=== PATIENT | male | born 1955 | race Caucasian/White ===

== ENCOUNTER 2021-11-02 10:48 | Outpatient (CLI) | payer MEDICARE, OTHER ==
[2021-11-02 21:34] VITALS: BP 128/74
--- NOTE | 2021-11-02 21:34 | SLEEP CARE CONSULTATION ---
Information from patient questionnaire entered by Clifton Cabrera MA. I have reviewed and concur with the information entered by Clifton Cabrera MA. This document represents the service I personally performed and the decisions made by me, Rajani Escobar MD, [facility]. History of Present Illness Service Date and Time: 11/02/2021 1048 Reason for Visit: New patient (ONSET 08/2019, NO PRIORS,) Chief Complaint: reports: Other (FALLING, JUMPING OUT OF BED, ACTING OUT TO DREAMS.) Date of Onset: LONG TIME, MORE FREQUENT Usual bedtime: 1000 PM Time it takes to fall asleep: NOT LONG Snores at night: Yes Observed to quit breathing while asleep: No Sleeps alone due to snoring: No Number of times waking at night: 1-4 Reasons for waking at night: reports: Snoring, Other (NIGHT TYLER) Toss, Turn, or Twitch while sleeping: Yes Recalls having dreams: Yes Usually gets out of bed at: 0730 Feels refreshed in the morning: No Morning headache: No Sleepy or fatigued during the day: No Ever fallen asleep while driving: No Takes day naps: Yes Dreams during day naps: No Prior sleep studies: No Additional HPI information: I had the pleasure of seeing Mr. Weber today regarding the possibility of him having a sleep disorder. As you know, he is a 66-year-old gentleman who complains of falling out of bed because he acted out his dreams. He says that he has acted out dreams all his life, but it is more frequent now. So far, he has sustained cuts on his head twice. He has punched his but no injury. The movements are usually in the second half of the night. His dreams are vivid and more violent recently. He tried taking melatonin briefly. No other meds. The patient tells me that he normally goes to bed around 10 pm, and it takes him approximately 5 - 10 minutes to fall asleep. He has been told that he snores loudly and irregularly at night. He has never been observed to stop breathing in his sleep. His can still sleep in the same bed. He can recall waking up on the average of 1 - 4 times during the night. Most of the time he wakes up because of having to use the bathroom. He has awakened occasionally because of his own snoring, but not choking, or having to gasp for air. There is a lot of tossing and turning in his sleep. In the morning he usually gets up out of the bed around 7:30 a.m. not feeling refreshed nor rested. He usually does not have a morning headache. During the day he does not feel sleepy or fatigued. His score on Reynolds Sleepiness Scale is 8 out of 24. He never has fallen asleep while driving nor has had any accident due to sleepiness. He usually does not take naps during the day. He denies having impaired concentration during the day. - Parasomnia Symptoms Ever been unable to move upon waking from sleep: No Walks in sleep: No Talks in sleep: Yes Ever acted out dreams in sleep: Yes Ever felt weak in the knees when startled or emotional: No Bothered by creepy, crawly, restless sensations in legs: No Problems with memory or concentration: Yes Subjective Initial Reynolds Sleepiness Scale score: 8 (2021) Social History The patient's occupation is a RE. Patient is and lives in [place]. Have you smoked in the past 12 months: Yes Cigarettes per day (20/pack): 15 (ON AND OFF) Years of smokin Quit date: 15 YEARS AGO Smoking Pack Years: 24.5 Alcohol use: Yes Alcohol amount and frequency: 5 X WEEKLY Caffeine use: Yes Caffeine amount and frequency: 3 X DAILY Family History Family history of sleep disordered breathing: Yes Family Hx Sleep Apnea: Father: Snoring Allergies and Home Medications Known drug allergies: No Drug allergies reviewed: Yes Home medication list reviewed: Yes Review of Systems Cardiovascular: denies: high blood pressure, palpitations, chest pain, irregular heart rate or pulse, leg or foot swelling, have to sleep sitting up, other Respiratory: denies: shortness of breath, wheeze, sputum production, chronic cough, other Gastrointestinal: denies: heartburn, difficulty swallowing, nausea, vomitting, diarrhea, abdominal pain, other Urinary: denies: incontinence, frequency, urgency, impotence, other Neurological: denies: headaches, seizure, head trauma, disorientation, speech dysfunction, gait or balance problems, fainting or unconsciousness, other Psychiatric: denies: Attention Deficit Hyperactivity, anxiety, depression, mood disorder, claustrophobia, other Ear/Nose/Throat: denies: nasal congestion, sinus problems, nose bleeds, dry mouth/throat, hoarseness, injury to nose, tonsillectomy, wisdom teeth removed, other Endocrine: denies: thyroid disease, history of goiter, sluggishness, too hot or cold, excessive thirst, increased appetite, increased urination, unexplained weakness, other Musculoskeletal: denies: joint pain, neck pain, back pain, joint swelling, muscle pain or cramping, mobility problems, other Immunologic: denies: sneezing, rash, itching, allergies to food or environment, other Physical Exam Vital signs obtained and entered by: Gm CABRERA CMA [facility] Blood Pressure: 128/74 (RIGHT, PULSE 65, RESP 18, ) Cuff size: wrist Heart Rate: 69 O2 Saturation: 98 (CLOTH MASK) Height: 5 ft 11 in Weight: 185 lb Body Mass Index: 25.7 BMI Classification: Overweight Neck circumference: 16 (INCHES) Impression and Plan IMPRESSION: 1. REM behavior disorder, as suggested by his and his wifes description. The parasomnia could have worsened with age. He does not appear to have any neurological defect. Other sleep disorders, such as sleep- disordered breathing, could contribute to the worsening of the parasomnia. Melatonin may be effective. I recommend he try it again. I will order an in- laboratory polysomnography to see if he has other sleep disorders. We may also see the parasomnia during the study. Plan: 1. Schedule an in-laboratory polysomnography. The study will be performed with parasomnia montage. 2. Return for follow up after the sleep study. Follow up with Sleep Care in: 1-2 months Visit Type: In Office Time Spent with Patient (minutes): 15 Provider Statement: I spent 100% of the Face to Face Visit with the patient with greater than 50% spent counseling the patient and coordination of care.
== END 2021-11-02 10:49 | disposition home or self-care (01) ==
LOC: SC 10:48
PROVIDERS: ATTEND Internal Medicine Pulmonary Disease
DX: G47.52 REM sleep behavior disorder (principal); R06.83 Snoring
CPT/HCPCS: 99202; G0463; 99212

== ENCOUNTER 2021-12-14 19:19 | Outpatient (CLI) | payer MEDICARE, OTHER | END 2021-12-14 19:20 | disposition home or self-care (01) | LOC: SC 19:19 | PROVIDERS: ATTEND Nurse Practitioner Family | DX: G47.50 Parasomnia, unspecified (principal); F51.3 Sleepwalking [somnambulism]; R06.83 Snoring; G47.52 REM sleep behavior disorder | CPT/HCPCS: 95810 ==

== ENCOUNTER 2022-01-11 10:40 | Outpatient (CLI) | payer MEDICARE, OTHER ==
--- NOTE | 2022-01-11 10:38 | SLEEP CARE CONSULTATION ---
Information from patient questionnaire entered by Clifton Chan MA. I have reviewed and concur with the information entered by Clifton Chan MA. This document represents the service I personally performed and the decisions made by me, Rajani Escobar MD, [facility]. History of Present Illness Service Date and Time: 01/11/2022 1020 Additional HPI information: Mr. Weber was called for follow up of the sleep study he had on 12/14/2021. The polysomnography showed that the patient had normal sleep efficiency. The sleep architecture was abnormal for sleep fragmentation and reduced amount of time spent in slow wave sleep (N3). Respiratory monitoring showed no significant sleep disordered breathing (AHI = 3.8) or hypoxia (gio oxygen saturation of 89 %). The few respiratory events occurred almost exclusively during supine sleep (supine AHI = 6.4; non-supine = 0.00). Snore was intermittent and moderate in intensity. There was no significant periodic leg movement of sleep. Cardiac rhythm was normal sinus rhythm without significant arrhythmia. The patient had arm movement during REM sleep. The patient was informed of these findings. I explained to him that the sleep study did show some arm movements during REM sleep. Sleep Study - Results Type of Sleep Study: Polysomnography (F/U POLY, 12/14/21 [facility],) Allergies and Home Medications Drug allergies reviewed: Yes Home medication list reviewed: Yes Review of Systems Review of systems same as previous: Yes Physical Exam Vital signs obtained and entered by: LEON HURTADO Impression and Plan IMPRESSION: 1. REM behavior disorder, based on his history and the documented arm movement during REM sleep. So far, there have been only minor injuries. We talked about safe proofing the sleep environment. He may try melatonin 3 9 mg at bedtime. PLAN: 1. Try melatonin 2. Keep bedroom environment safe. 3. Return for a follow up on as needed basis. Follow up with Sleep Care in: as needed Visit Type: Telehealth Phone Patient Location: Home Other Participants: Spouse/Significant Other Location of Provider: Office Patient agrees and consents to this telehealth visit type: Yes Patient agrees to have their insurance billed: Yes Time Spent with Patient (minutes): 12 Provider Statement: I spent 100% of the Telehealth Phone Call with the patient with greater than 50% spent counseling the patient and coordination of care.
== END 2022-01-11 10:41 | disposition home or self-care (01) ==
LOC: SC 10:40
PROVIDERS: ATTEND Internal Medicine Pulmonary Disease
DX: G47.52 REM sleep behavior disorder (principal)

== ENCOUNTER 2023-11-24 11:22 | Outpatient (CLI) | payer MEDICARE ==
[2023-11-24 14:42] LABS: BASOPHILS # (AUTO) 0.1 10^3/uL (0.0-0.1); BASOPHILS % (AUTO) 1.1 %; EOSINOPHILS # (AUTO) 0.1 10^3/uL (0.0-0.7); EOSINOPHILS % (AUTO) 1.3 %; HCT - HEMATOCRIT 49.8 % (42.0-52.0); HGB - HEMOGLOBIN 16.4 g/dL (14.0-18.0); LYMPHOCYTES # (AUTO) 0.9 10^3/uL (1.5-3.5); MEAN CORPUSCULAR HEMOGLOBIN 29.7 pg (27.0-31.0); MEAN CORPUSCULAR HGB CONC 32.9 g/dL (32.0-36.0); MEAN CORPUSCULAR VOLUME 90.1 fL (80.0-94.0); MEAN PLATELET VOLUME 10.7 fL (7.4-11.4); MONOCYTES # (AUTO) 0.6 10^3/uL (0.0-1.0); MONOCYTES % (AUTO) 12.8 %; NEUTROPHILS # (AUTO) 2.9 10^3/uL (1.5-6.6); NEUTROPHILS % (AUTO) 64.6 %; PLT - PLATELET COUNT 173 10^3/uL (130-450); RED BLOOD COUNT 5.53 10^6/uL (4.70-6.10); RED CELL DISTRIBUTION WIDTH 13.4 % (12.0-15.0); WHITE BLOOD COUNT 4.5 x10^3/uL (4.8-10.8)
== END 2023-11-24 11:23 | disposition home or self-care (01) ==
LOC: LAB.S 11:22
PROVIDERS: ATTEND Registered Nurse
DX: R35.0 Frequency of micturition (principal)
CPT/HCPCS: 36415; 84153; 85025